=== PATIENT | male | born 1975 | race Caucasian/White ===

== ENCOUNTER 2021-08-09 13:02 | Emergency (ER) | payer OTHER, SELFPAY ==
[2021-08-09 13:41] LABS: Urine Blood 3+ (Negative); Urine Glucose Negative (Negative); Urine Protein 2+ (Negative); Urine Specific Gravity 1.025 (1.005-1.030); Urine pH 5.5 (5.0-7.0)
[2021-08-09] MEDS ORDERED: ONDANSETRON 4 MG/2 ML VIAL ONE (13:47)
[2021-08-09] MEDS ORDERED: MORPHINE 4 MG/ML SYR ONE (13:47)
[2021-08-09 13:55] LABS: Absolute Lymphocytes (CBC) 1.9 K/uL (0.7-4.9); Basophils % 0.7 % (0-1.3); Hematocrit 41.4 % (39.6-49.0); Lymphocytes % 22.2 % (15.3-44.8); MPV 7.6 fL (7.6-11.3); RBC Red Blood Cell Count 4.47 M/uL (4.33-5.43)
[2021-08-09 14:11] LABS: Urine RBC >50 /HPF (NONE SEEN)
[2021-08-09 14:12] LABS: Urine Bacteria <20 /HPF (NONE SEEN)
--- NOTE | 2021-08-09 14:14 | RAD REPORT ---
EXAM DESCRIPTION: CT - Stone Protocol - 08/09/2021 2:04 pm CLINICAL HISTORY: FLANK PAIN COMPARISON: No comparisons TECHNIQUE: Axial 3 mm thick images were obtained without oral or IV contrast. The tgeua-gw-xadh span s the entirety of the system including uppermost abdomen and lung bases. All CT scans are performed using dose optimization technique as appropriate and may include automated exposure control or mA/KV adjustment according to patient size. FINDINGS: Mild left-sided hydronephrosis is present down to the UVJ where there is a [address] one at the bladder wall. Patient has additional 2-5 mm nonobstructing calyx calculi on the left. Punc gutierrez calyx mineralization noted on the right without hydronephrosis. No suspicious renal masses. Isod ense masses and pyelonephritis are not excluded on a stone protocol CT scan. No significant adrenal f inding. Urinary bladder is fully contracted. Imaged portions of the liver, spleen and pancreas show no suspicious findings on non-contrast imaging . No gallbladder or biliary tree abnormality identified. No suspicious bowel findings. No mass or bulky lymphadenopathy. A small 15 millimeter fat only umbilical hernia present. Fat extend s into the origin of each inguinal canal. No free air, free fluid or inflammatory stranding. No significant bony abnormality. IMPRESSION: Mild left-sided hydronephrosis secondary to an obstructing 3 mm calcification at the lef t UVJ. Isodense masses and pyelonephritis are not excluded on stone protocol technique.
[2021-08-09] MEDS ORDERED: TAMSULOSIN 0.4 MG SR CAP ONE (14:30)
[2021-08-09] MEDS ORDERED: MAGNESIUM SULFATE 1 gm IVPB 1 GM/100 ML BAG IV ONE (14:30)
[2021-08-09] MEDS ORDERED: KETOROLAC 30 MG/ML INJ ONE (15:08)
--- NOTE | 2021-08-09 15:19 | ER ---
Nurse's Notes [facility] Name: Riki Chavez Age: 46 yrs Sex: Male : 1975 Arrival Date: 08/09/2021 Time: 13:04 Bed 5 Private MD: Diagnosis: Calculus of kidney with calculus of ureter Presentation: 08/09 13:29 Chief complaint: Patient states: L flank pain that began this morning. HX of kidney ss stones. Pt believes this may be another one. Coronavirus screen: Client denies travel out of the [place] in the last 14 days. Ebola Screen: Patient denies exposure to infectious person. Patient denies travel to an Ebola-affected area in the 21 days before illness onset. Initial Sepsis Screen: Does the patient meet any 2 criteria? No. Patient's initial sepsis screen is negative. Does the patient have a suspected source of infection? No. Patient's initial sepsis screen is negative. Risk Assessment: Do you want to hurt yourself or someone else? Patient reports no desire to harm self or others. Onset of symptoms was August 09, 2021. 13:29 Method Of Arrival: Ambulatory ss 13:29 Acuity: KHLOE 3 ss Historical: - Allergies: 13:30 No Known Allergies; ss - Home Meds: 13:30 None [Active]; ss - PMHx: 13:30 kidney stones; ss - PSHx: 13:30 None; ss - Immunization history:: Client reports having NOT received the Covid vaccine. - Social history:: Smoking status: Patient denies any tobacco usage or history of. Screenin:07 Abuse screen: Denies threats or abuse. Denies injuries from another. Nutritional iw screening: No deficits noted. Tuberculosis screening: No symptoms or risk factors identified. Fall Risk IV access (20 points). Assessment: 14:06 General: Appears uncomfortable, Behavior is cooperative. Pain: Complains of pain in iw left flank. Neuro: Level of Consciousness is awake, alert, obeys commands, Oriented to person, place, time, situation, Moves all extremities. Full function GI: Bowel sounds present X 4 quads. Abd is soft X 4 quads Reports. Derm: Skin is intact, is fragile. Musculoskeletal: Range of motion: intact in all extremities. Vital Signs: 13:29 Pulse 65; Resp 16; Temp 98.4(TE); Pulse Ox 98% on R/A; Weight 83.91 kg; Height 6 ft. 1 ss in. (185.42 cm); Pain 10/10; 13:30 BP 122 / 89; ss 14:00 BP 124 / 71; Pulse 55; Resp 15; Pulse Ox 100% ; jl7 15:00 BP 115 / 82; Pulse 58; Resp 15; Pulse Ox 100% ; jl7 13:29 Body Mass Index 24.41 (83.91 kg, 185.42 cm) ED Course: 13:04 Patient arrived in ED. as 13:30 Triage completed. ss 13:30 Arm band placed on. ss 13:30 Inserted saline lock: 22 gauge in left antecubital area, using aseptic technique. iw 13:31 Jerica Cottrell FNP-C is PHCP. kb 13:31 Rian Renteria MD is Attending Physician. kb 13:32 Macrina Haynes, ZEV is Primary Nurse. iw 14:00 Patient has correct armband on for positive identification. jl7 14:04 CT Stone Protocol In Process Unspecified. EDMS 15:28 No provider procedures requiring assistance completed. IV discontinued, intact, jl7 bleeding controlled, No redness/swelling at site. Pressure dressing applied. Administered Medications: 13:52 Drug: morphine 4 mg Route: IVP; Site: left antecubital; jl7 14:15 Follow up: Response: No adverse reaction; Pain is decreased jl7 13:52 Drug: Zofran (Ondansetron) 4 mg Route: IVP; Site: left antecubital; jl7 14:39 Follow up: Response: No adverse reaction jl7 14:38 Drug: Magnesium Sulfate 1 grams Route: IVPB; Infused Over: 30 mins; Site: left jl7 antecubital; 15:03 Follow up: Response: No adverse reaction; IV Status: Completed infusion jl7 14:38 Drug: Flomax (tamsulosin) 0.4 mg Route: PO; jl7 15:29 Follow up: Response: No adverse reaction jl7 15:24 Drug: Ketorolac 30 mg Route: IVP; Site: left antecubital; iw 15:30 Follow up: Response: Medication administered at discharge. jl7 Outcome: 15:18 Discharge ordered by . kb 15:28 Discharged to home ambulatory, with family. jl7 15:28 Condition: stable 15:28 Discharge instructions given to patient, family, Instructed on discharge instructions, follow up and referral plans. medication usage, Demonstrated understanding of instructions, follow-up care, medications, Prescriptions given X 3. 15:29 Patient left the ED. jl7 Signatures: Dispatcher [employer] EDMS Jerica Cottrell, PULP AND PAPER TESTER-C PULP AND PAPER TESTER-Mary Calderon Irene, RN RN iw Smirch, Shelby, RN RN ss Leal, Jahala, RN RN jl7
--- NOTE | 2021-08-09 15:19 | EDPHYS ---
Physician Documentation [facility] Name: Riki Chavez Age: 46 yrs Sex: Male : 1975 Arrival Date: 08/09/2021 Time: 13:04 Bed 5 Private MD: ED Physician Rian Renteria HPI: 08/09 13:54 This 46 yrs old Male presents to ER via Ambulatory with complaints of Possible Kidney kb Stone. 13:54 The patient complains of pain in the left flank. The pain radiates to the right kb inguinal area. Onset: The symptoms/episode began/occurred this morning. Modifying factors: The symptoms are alleviated by nothing. the symptoms are aggravated by nothing. Associated signs and symptoms: The patient has no apparent associated signs or symptoms. Severity of pain: At its worst the pain was moderate in the emergency department the pain is unchanged. The patient has not experienced similar symptoms in the past. The patient has not recently seen a physician. Pt reports left flank pain, difficulty urinating and small amounts that started this morning. . Historical: - Allergies: 13:30 No Known Allergies; ss - Home Meds: 13:30 None [Active]; ss - PMHx: 13:30 kidney stones; ss - PSHx: 13:30 None; ss - Immunization history:: Client reports having NOT received the Covid vaccine. - Social history:: Smoking status: Patient denies any tobacco usage or history of. ROS: 13:53 Constitutional: Negative for fever, chills, and weight loss. kb 13:53 Back: Positive for flank pain, on the left. 13:53 : Positive for flank pain, difficulty urinating. 13:53 All other systems are negative. Exam: 13:53 Constitutional: This is a well developed, well nourished patient who is awake, alert, kb and in no acute distress. Head/Face: Normocephalic, atraumatic. ENT: Moist Mucous membranes Respiratory: Respirations even and unlabored. No increased work of breathing, no retractions or nasal flaring. Abdomen/GI: Soft, non-tender. No distention Skin: Warm, dry with normal turgor. Normal color. MS/ Extremity: Pulses equal, no cyanosis. Neurovascular intact. Full, normal range of motion. Neuro: Awake and alert, GCS 15, oriented to person, place, time, and situation. Moves all extremities. Normal gait. Psych: Awake, alert, with orientation to person, place and time. Behavior, mood, and affect are within normal limits. 13:53 Back: CVA tenderness, that is moderate, is noted on the left. Vital Signs: 13:29 Pulse 65; Resp 16; Temp 98.4(TE); Pulse Ox 98% on R/A; Weight 83.91 kg; Height 6 ft. 1 ss in. (185.42 cm); Pain 10/10; 13:30 BP 122 / 89; ss 14:00 BP 124 / 71; Pulse 55; Resp 15; Pulse Ox 100% ; jl7 15:00 BP 115 / 82; Pulse 58; Resp 15; Pulse Ox 100% ; jl7 13:29 Body Mass Index 24.41 (83.91 kg, 185.42 cm) ss MDM: 13:31 Patient medically screened. kb 13:52 Data reviewed: vital signs, nurses notes. Data interpreted: Pulse oximetry: on room air kb is 98 %. Interpretation: normal. 15:18 Counseling: I had a detailed discussion with the patient and/or guardian regarding: the kb historical points, exam findings, and any diagnostic results supporting the discharge/admit diagnosis, lab results, radiology results, the need for outpatient follow up, a family practitioner, a urologist, to return to the emergency department if symptoms worsen or persist or if there are any questions or concerns that arise at home. 08/09 13:33 Order name: Basic Metabolic Panel; Complete Time: 14:23 kb 08/09 13:33 Order name: CBC with Diff; Complete Time: 14:23 kb 08/09 13:33 Order name: CT Stone Protocol; Complete Time: 14:23 kb 08/09 13:33 Order name: Urine Microscopic Only; Complete Time: 14:23 kb 08/09 13:41 Order name: Urine Dipstick-Ancillary; Complete Time: 13:45 EDMS 08/09 13:33 Order name: IV Saline Lock; Complete Time: 13:52 kb 08/09 13:33 Order name: Labs collected and sent; Complete Time: 13:53 kb 08/09 13:33 Order name: Urine Dipstick-Ancillary (obtain specimen); Complete Time: 13:53 kb Administered Medications: 13:52 Drug: morphine 4 mg Route: IVP; Site: left antecubital; jl7 14:15 Follow up: Response: No adverse reaction; Pain is decreased jl7 13:52 Drug: Zofran (Ondansetron) 4 mg Route: IVP; Site: left antecubital; jl7 14:39 Follow up: Response: No adverse reaction jl7 14:38 Drug: Magnesium Sulfate 1 grams Route: IVPB; Infused Over: 30 mins; Site: left jl7 antecubital; 15:03 Follow up: Response: No adverse reaction; IV Status: Completed infusion jl7 14:38 Drug: Flomax (tamsulosin) 0.4 mg Route: PO; jl7 15:29 Follow up: Response: No adverse reaction jl7 15:24 Drug: Ketorolac 30 mg Route: IVP; Site: left antecubital; iw 15:30 Follow up: Response: Medication administered at discharge. jl7 Disposition: 15:40 Co-signature as Attending Physician, Rian Renteria MD I agree with the assessment and rn plan of care. Attestation: The patient's history, exam findings, diagnostics, and a summary of any interventions or procedures was reviewed in detail with Jerica SANDOVAL. Disposition Summary: 08/09/21 15:18 Discharge Ordered Location: Home kb Condition: Stable kb Diagnosis - Calculus of kidney with calculus of ureter kb Followup: kb - With: Emergency Department - When: As needed - Reason: Worsening of condition Followup: kb - With: Private Physician - When: 2 - 3 days - Reason: Recheck today's complaints, Continuance of care, Re-evaluation by your physician Discharge Instructions: - Discharge Summary Sheet kb - Kidney Stones, [id number] kb Forms: - Medication Reconciliation Form kb - Thank You Letter kb - Antibiotic Education kb - Prescription Opioid Use kb - Work release form eb Prescriptions: - Flomax 0.4 mg Oral capsule - take 1 capsule by ORAL route once daily for 10 days; 10 capsule; Refills: 0, kb Product Selection Permitted - Zofran 4 mg Oral Tablet - take 1 tablet by ORAL route every 6 hours As needed; 20 tablet; Refills: 0, kb Product Selection Permitted - Diclofenac Sodium 75 mg Oral tablet,delayed release (DR/EC) - take 1 tablet by ORAL route 2 times per day As needed; 30 tablet; Refills: 0, kb Product Selection Permitted Signatures: Dispatcher [employer] Jerica Ohara, SCRAP BUNCH MAKER-C SCRAP BUNCH MAKER-Ckb Macrina Haynes, RN RN Rian Galo MD MD rn Smirch, Shelby, RN RN Primitivo Holm RN RN jl7
[2021-08-09 15:35] VITALS: TEMP 98.4; O2SAT 98
[2021-08-09 15:36] VITALS: BP 122/89
== END 2021-08-09 15:29 | disposition home or self-care (01) ==
LOC: ER 13:02
DX: N20.2 Calculus of kidney with calculus of ureter (principal)
CPT/HCPCS: 36415; 74176; 76377; 80048; 81003; 81015; 85025; 96365; 96375; 99284; J2405; J3475

== ENCOUNTER 2023-03-17 11:02 | Emergency (ER) | payer SELFPAY ==
--- OUTSIDE RECORDS SUMMARY | 2023-03-17 11:05 | XMS REPORT | Continuity of Care Document ---
:1975 Author Organization [facility] t Address [address] [place] [address] Care Team Providers Name Role Phone Pcp, Patient Does Not Have A Primary Care Physician +[id number] ESTEFANIA COOPER Attending Clinician Unavailable Estefania Keyes Attending Clinician Problems Condition Condition Condition Status Onset Resolution Last Treating Co mments Source Name Details Category Date Date Treatment Clinician Date Headache, Headache, Disease Active 2015-09 Uni vers unspecifie unspecifie 10 it y [place] d [place] d [place] type type Medical Branch Calculus Calculus Disease Active Unive rs of both of both 12-24 ity of kidneys kidneys 00:00: [place] [address] [facility] [place] Allergies, Adverse Reactions, Alerts Allergy Allergy Status Severity Reaction(s) Onset Inactive Treating Comm ents Source Name Type Date Date Clinician Codeine Propensi Active Nausea Univers ty to and/or 12-24 ity of adverse Vomiting 00:00: [place] reaction 00 Medical s Branch CODEINE DRUG Active N/V Univers INGREDI 12-24 ity of 00:00: [place] [address] [facility] [place] Social History Social Habit Start Date Stop Date Quantity Comments Source Exposure to 2022-04-15 2022-04-[address] [facility] SARS-CoV-2 00:00:00 11:14:00 [facility] (event) Branch Alcohol intake 2022-04-25 2022-04-25 0 /d [facility] 00:00:00 00:00:00 [facility] Tobacco use and 2016-01-30 2016-01-30 Smokeless tobacco Un iversity of exposure 00:00:00 00:00:00 non-user [facility] Sex Assigned At [birth year] Universit y of 00:00:00 00:00:00 [facility] Smoking Status Start Date Stop Date Source Never smoked tobacco [facility] Medications Ordered Filled Start Stop Current Ordering Indication Dosage Frequency Signature Comments Components Source Medication Medication Date Date Medication? Clinician (SIG) Name Name predniSONE No [id number] 40mg Take 2 Univers 20 mg 04-26 tablets by ity of tablet 00:00: 04:59 mouth in [place] 00 :00 the Medical morning Branch for 5 days. methocarbam No 1000mg 1,000 mg, Univers oL 04-25 Oral, ity of (ROBAXIN) 16:45: 16:43 ONCE, [place] tablet [place] dose, On Medical 1,000 mg [place] Branch 04/25/22 at 1145, KEISHA dexamethaso No 10mg 10 mg, Uni vers ne sod phos 04-25 Intramuscu i ty of PF 16:45: 16:42 lar, ONCE, [place] injection 00 :00 1 dose, On Medi star 10 mg [facility] 04/25/22 at 1145, 1 mL ketorolac No 60mg 60 mg, Unive rs (TORADOL) 04-25 Intramuscu ity of injection 16:45: 16:45 lar, ONCE, [place] 60 mg 00 :00 1 dose, On Medical [place] Branch 04/25/22 at 1145, KEISHA ibuprofen Yes [id number] 800mg Take 1 Univers 800 mg 8-21 tablet by ity of tablet 00:00: mouth [place] 00 every 8 Medical (eight) Branch hours as needed for Pain (scale 4-6). methocarbam Yes [id number] 750mg Take 1 Univers oL 750 mg 8-21 tablet by ity o f tablet 00:00: mouth 4 [place] 00 (four) Medical times Branch daily as needed for Pain (scale 7-10). traMADOL 2017-09 Yes 50mg Take 1 Univers (ULTRAM) 50 0-30 tablet by ity of mg tablet 00:00: mouth [place] 00 every 6 Medical (six) Branch hours as needed for Pain (scale 7-10). ibuprofen 2015-09 Yes 800mg Take 1 Unive rs (MOTRIN) 0-25 tablet by ity of 800 mg 00:00: mouth [place] tablet 00 every 6 Medical (six) Branch hours as needed for Pain (scale 4-6). proMETHazin 2015-09 Yes 25mg Take 1 Univ ers e 0-25 tablet by ity of (PHENERGAN) 00:00: mouth [place] 25 mg 00 every 4 Medical tablet (four) Branch hours as needed for Nausea and Vomiting (N/V). Vital Signs Vital Name Observation Time Observation Value Comments Source Systolic blood 2022-04-25 16:23:00 136 mm[Hg] Univer sity [facility] Diastolic blood 2022-04-25 16:23:00 85 mm[Hg] [facility] Heart rate 2022-04-25 16:23:00 64 /min [facility] Respiratory rate 2022-04-25 16:23:00 20 /min [facility] Oxygen saturation in 2022-04-25 16:23:00 98 /min [facility] Arterial blood by [facility] Pulse oximetry [place] Body temperature 2022-04-25 16:15:00 36.5 Tish [facility] Body height 2022-04-25 16:15:00 185.4 cm [facility] Body weight 2022-04-25 16:15:00 86.183 kg [facility] BMI 2022-04-25 16:15:00 25.07 kg/m2 [facility] Procedures Procedure Date / Time Performed Performing Clinician Sourc e URINALYSIS 2022-04-25 16:24:00 Estefania Cooper [facility] CONSENT/REFUSAL FOR 2022-04-25 16:13:15 Doctor Unassigned, No Un [facility] DIAGNOSIS AND Name Medical Branch TREATMENT Encounters Start End Encounter Admission Attending Care Care Encounter Source Date/Time Date/Time Type Type Clinicians Facility Department ID 2022-04-25 2022-04-25 Emergency X SIMI COOPER [facility] [id number] [facility] 11:16:00 12:51:00 ESTEFANIA benoit of [facility] 2022-04-25 2022-04-25 Emergency [facility], [facility] [id number] [facility] 11:16:00 12:51:00 Estefania CEDENO [id number] i [facility] [id number] [facility] [id number] [facility] 084 Branch Results This patient has no known results.
[2023-03-17 11:54] LABS: Hematocrit 41.7 % (39.6-49.0); Lymphocytes % 34.3 % (15.3-44.8); MCV 92.5 fL (80-100); MPV 7.6 fL (7.6-11.3); RBC Red Blood Cell Count 4.51 M/uL (4.33-5.43)
[2023-03-17] MEDS ORDERED: ONDANSETRON 4 MG/2 ML VIAL ONE (11:54)
[2023-03-17] MEDS ORDERED: KETOROLAC 30 MG/ML INJ ONE (11:54)
[2023-03-17] MEDS ORDERED: NA CHLORIDE 0.9% 1,000 ML ONE (11:55)
[2023-03-17 12:01] LABS: Specific Gravity 1.011 (1.005-1.030); Urine Bacteria None Seen /HPF (<20); Urine Bilirubin NEGATIVE (Negative); Urine Blood 3+ (OVER) (Negative); Urine Color Light-Yellow (Yellow); Urine Glucose NEGATIVE (Negative); Urine Mucus Slight /HPF (None Seen); Urine Protein NEGATIVE (Negative); Urine RBC 21-50 /HPF (None Seen); Urine Urobilinogen Normal (Normal)
[2023-03-17 12:03] LABS: Urine Clarity Clear (Clear)
--- NOTE | 2023-03-17 12:03 | RAD REPORT ---
EXAM DESCRIPTION: CT - Abdomen Pelvis Wo Contrast - 03/17/2023 11:36 am CLINICAL HISTORY: FLANK PAIN COMPARISON: Stone Protocol dated 08/09/2021 TECHNIQUE: Thin cut axial CT imaging of the abdomen and pelvis was performed without IV contrast. Mu ltiplanar reformats were generated and reviewed. All CT scans are performed using dose optimization technique as appropriate and may include automated exposure control or mA/KV adjustment according to patient size. FINDINGS: No suspicious findings in the lung bases. The liver, spleen, and pancreas show no suspicious findings. Gallbladder and biliary tree are also wi thout suspicious finding. Symmetric renal contour, without suspicious parenchymal findings within limits of noncontrast techniq ue. Mild left hydroureteronephrosis. 5 millimeter calculus along the base of the bladder, may be at t he vesicoureteral junction or recently passed. Other punctate 2-3 millimeter calculi along the renal pelvis and calyces bilaterally. No dilated bowel loops or bowel wall thickening. No free air, free fluid or inflammatory stranding. N o hernia, mass or bulky lymphadenopathy. The urinary bladder is otherwise without significant finding . No suspicious bony findings. IMPRESSION: Mild left hydroureteronephrosis. A 5 millimeter calculus present at the base of the urinary bladder, may be present at the exact urete ral junction or recently passed into the bladder lumen.
[2023-03-17 12:13] LABS: Albumin 4.1 g/dL (3.4-5.0); Bilirubin Total 0.7 mg/dL (0.2-1.0); Potassium 3.8 mEq/L (3.5-5.1); Protein, Total 7.8 g/dL (6.4-8.2); Troponin High Sensitivity 26.4 pg/mL (<58.9)
--- NOTE | 2023-03-17 12:21 | ER ---
Nurse's Notes [facility] Name: Riki Chavez Age: 47 yrs Sex: Male : 1975 Arrival Date: 03/17/2023 Time: 11:02 Bed 16 Private MD: Diagnosis: Ureterolithiasis;Elevated creatinine Presentation: 03/17 11:21 Chief complaint: Patient states: L flank pain with dark urine since last night. No kl fever. Coronavirus screen: Vaccine status: Patient reports being unvaccinated. Client denies travel out of the [place] in the last 14 days. At this time, the client does not indicate any symptoms associated with coronavirus-19. Ebola Screen: Patient denies travel to an Ebola-affected area in the 21 days before illness onset. Initial Sepsis Screen: Does the patient meet any 2 criteria? No. Patient's initial sepsis screen is negative. Does the patient have a suspected source of infection? Yes: Dysuria/Frequency/Urgency/UTI. Risk Assessment: Do you want to hurt yourself or someone else? Patient reports no desire to harm self or others. Onset of symptoms was March 16, 2023. 11:21 Method Of Arrival: Ambulatory kl 11:21 Acuity: KHLOE 3 kl Triage Assessment: 11:22 General: Appears uncomfortable, Behavior is calm, cooperative, appropriate for age. ll1 Pain: Complains of pain in L flank Quality of pain is described as aching. : Reports pain in left flank(s), dark colored urine. Historical: - Allergies: 11:19 No Known Allergies; kl - PMHx: 11:19 Kidney stones; kl - PSHx: 11:19 None; kl - Immunization history:: Client reports having NOT received the Covid vaccine. - Social history:: Smoking status: Patient denies any tobacco usage or history of. Screenin:45 [facility] ED Fall Risk Assessment (Adult) History of falling in the last 3 months, nj1 including since admission No falls in past 3 months (0 pts) Confusion or Disorientation No (0 pts) Intoxicated or Sedated No (0 pts) Impaired Gait No (0 pts) Mobility Assist Device Used No (0 pt) Altered Elimination No (0 pt) Score/Fall Risk Level 0 - 2 = Low Risk Oriented to surroundings, Maintained a safe environment, Hourly rounding (assess needs \T\ fall precautionary measures) done. Abuse screen: Denies threats or abuse. Denies injuries from another. 11:45 Nutritional screening: No deficits noted. Tuberculosis screening: No symptoms or risk [facility] factors identified. Assessment: 11:37 Reassessment: Taken for CT. nj1 11:45 Reassessment: Patient appears in no apparent distress at this time. Patient and/or nj1 family updated on plan of care and expected duration. Pain level reassessed. Patient is alert, oriented x 3, equal unlabored respirations, skin warm/dry/pink. 11:45 Pain: Complains of pain in Left flank Pain currently is 8 out of 10 on a pain scale. nj1 12:35 Reassessment: Patient appears in no apparent distress at this time. Patient and/or nj1 family updated on plan of care and expected duration. Pain level reassessed. Patient is alert, oriented x 3, equal unlabored respirations, skin warm/dry/pink. Patient states feeling better. Patient states symptoms have improved. 13:00 Reassessment: Patient appears in no apparent distress at this time. Patient and/or nj1 family updated on plan of care and expected duration. Pain level reassessed. Patient is alert, oriented x 3, equal unlabored respirations, skin warm/dry/pink. Patient states feeling better. Patient states symptoms have improved. Vital Signs: 11:21 BP 133 / 79; Pulse 57; Resp 17; Temp 98.5; Pulse Ox 99% ; Weight 83.91 kg; Height 6 ft. kl 1 in. ; Pain 8/10; 12:34 BP 114 / 64; Pulse 54; Resp 18; Pulse Ox 98% ; Pain 3/10; nj1 13:00 BP 114 / 64; Pulse 52; Resp 16; Pulse Ox 98% ; Pain 2/10; nj1 11:21 Body Mass Index 24.41 (83.91 kg, 185.42 cm) kl 11:21 Pain Scale: Adult kl 12:34 Pain Scale: Adult nj1 13:00 Pain Scale: Adult nj1 ED Course: 11:03 Patient arrived in ED. am2 11:05 Jackson Faye MD is Attending Physician. rt 11:05 Attending Physician role handed off by Jackson Faye MD sd2 11:05 Carito Naidu MD is Attending Physician. sd2 11:22 Triage completed. kl 11:22 Arm band placed on Patient placed in an exam room, on a stretcher. kl 11:25 Shelby Gomez, RN is Primary Nurse. nj1 11:36 CT Abd/Pelvis - Without Contrast In Process Unspecified. EDMS 11:45 Patient has correct armband on for positive identification. Bed in low position. Call nj1 light in reach. Adult w/ patient. Provided Education on: Fall precautions. 11:45 Inserted saline lock: 20 gauge in left antecubital area, using aseptic technique. Blood nj1 collected. Inserted by JHONY, electromyographic technician. 11:55 Urine collected: clean catch specimen, clear. 8 12:20 Ean Magaña MD is Referral Physician. sd2 13:00 IV discontinued, intact, bleeding controlled. nj1 13:03 No provider procedures requiring assistance completed. nj1 Administered Medications: 11:48 Drug: NS 0.9% IV 1000 ml Route: IV; Rate: 1 bolus; Site: left antecubital; nj1 13:00 Follow up: Response: No adverse reaction; IV Status: Completed infusion; IV Intake: nj1 1000ml 11:48 Drug: Ondansetron IVP 4 mg Route: IVP; Site: left antecubital; nj1 12:36 Follow up: Response: No adverse reaction nj1 11:50 Drug: Ketorolac IVP 15 mg Route: IVP; Site: left antecubital; nj1 12:36 Follow up: Response: No adverse reaction; Pain is decreased nj1 Medication: 13:03 VIS not applicable for this client. nj1 Intake: 13:00 IV: 1000ml; Total: 1000ml. nj1 Outcome: 12:21 Discharge ordered by . sd2 13:00 Discharged to home ambulatory, with family, Given urine strainer nj1 13:00 Condition: improved 13:00 Discharge instructions given to patient, Instructed on discharge instructions, follow up and referral plans. medication usage, urine strainer, Demonstrated understanding of instructions, follow-up care, medications. 13:04 Patient left the ED. nj1 Signatures: Dispatcher [employer] EDTX Leydi Qureshi RN RN kl Moreno, Amanda am2 Kaylyn Qureshi RN RN ll1 Dunlop, Stephanie, MD MD sd2 [place], Ryan, MD MD rt Shelby Gomez, RN RN nj1 Bree Sebastian sm8 Corrections: (The following items were deleted from the chart) 12:36 12:34 Pulse 54bpm; Resp 18bpm; Pulse Ox 98%; Pain 11/12, Adult; nj1 nj1
--- NOTE | 2023-03-17 12:21 | EDPHYS ---
Physician Documentation [facility] Name: Riki Chavez Age: 47 yrs Sex: Male : 1975 Arrival Date: 03/17/2023 Time: 11:02 Bed 16 Private MD: ED Physician Carito Naidu HPI: 03/17 11:31 This 47 yrs old Male presents to ER via Ambulatory with complaints of Flank Pain. sd2 11:31 47 yo M presents with CC of L flank pain that started overnight. Reports noticing sd2 tea-colored urine last night and then the pain began. Denies any fevers, vomiting or diarrhea. Reports nausea occasionally. Has not taken any medications at home for the pain. Does not currently follow up with a urologist but has a history of multiple kidney stones in the past. He has had laser lithotripsy once for his first kidney stone 20+ years ago. . Historical: - Allergies: 11:19 No Known Allergies; kl - PMHx: 11:19 Kidney stones; kl - PSHx: 11:19 None; kl - Immunization history:: Client reports having NOT received the Covid vaccine. - Social history:: Smoking status: Patient denies any tobacco usage or history of. ROS: 11:31 Constitutional: Negative for fever, chills, and weight loss, Eyes: Negative for injury, sd2 pain, redness, and discharge, Cardiovascular: Negative for chest pain, palpitations, and edema, Respiratory: Negative for shortness of breath, cough, wheezing. Abdomen/GI: Negative for abdominal pain, vomiting, diarrhea. Positive for nausea and flank pain. Back: Negative for injury and pain, : Negative for dysuria, frequency. Positive for urine color change. MS/Extremity: Negative for injury and deformity, Skin: Negative for injury, rash, and discoloration, Neuro: Negative for headache, numbness and tingling. Exam: 11:31 Constitutional: This is a well developed, well nourished patient who is awake, alert, sd2 and in no acute distress. Head/Face: Normocephalic, atraumatic. Eyes: EOMI, normal conjunctiva bilaterally Chest/axilla: Normal chest wall appearance and motion. Nontender with no deformity. Cardiovascular: Regular rate and rhythm with a normal S1 and S2. No gallops, murmurs, or rubs. 2+ distal pulses. Respiratory: Lungs have equal breath sounds bilaterally, clear to auscultation and percussion. No rales, rhonchi or wheezes noted. No increased work of breathing, no retractions or nasal flaring. Abdomen/GI: Soft, non-tender, with normal bowel sounds. No guarding or rebound. No evidence of tenderness throughout. Back: No spinal tenderness. Left costovertebral tenderness present. Full range of motion. Skin: Warm, dry with normal turgor. Normal color with no rashes, no lesions, and no evidence of cellulitis. MS/ Extremity: Pulses equal, no cyanosis. Neurovascular intact. Full, normal range of motion. Ambulatory without difficulty. Psych: Awake, alert, with orientation to person, place and time. Behavior, mood, and affect are within normal limits. Vital Signs: 11:21 BP 133 / 79; Pulse 57; Resp 17; Temp 98.5; Pulse Ox 99% ; Weight 83.91 kg; Height 6 ft. kl 1 in. ; Pain 8/10; 12:34 BP 114 / 64; Pulse 54; Resp 18; Pulse Ox 98% ; Pain 3/10; nj1 13:00 BP 114 / 64; Pulse 52; Resp 16; Pulse Ox 98% ; Pain 2/10; nj1 11:21 Body Mass Index 24.41 (83.91 kg, 185.42 cm) kl 11:21 Pain Scale: Adult kl 12:34 Pain Scale: Adult nj1 13:00 Pain Scale: Adult nj1 MDM: 11:25 Patient medically screened. sd2 11:31 Differential diagnosis: Gastritis, cholecystitis, pancreatitis, SBO, diverticulitis, sd2 kidney stone, appendicitis, UTI, dehydration, electrolyte abnormality among others. Data reviewed: vital signs, nurses notes, lab test result(s), radiologic studies. I considered the following discharge prescriptions or medication management in the emergency department Medications were administered in the Emergency Department. See MAR. Historians other than the Patient: Spouse/Significant Other: at reports allergy history. 12:19 Counseling: I had a detailed discussion with the patient and/or guardian regarding: the sd2 historical points, exam findings, and any diagnostic results supporting the discharge/admit diagnosis, lab results, radiology results, the need for outpatient follow up, to return to the emergency department if symptoms worsen or persist or if there are any questions or concerns that arise at home. ED course: Labs and imaging reviewed. Possibly about to pass or recently passed 5 mm stone seen on CT. No signs of UTI. Creatinine is mildly elevated but improved compared to last levels in system. Pt advised of need to follow up with Urology and PCP regarding this since it has been ongoing. He was advised of continued supportive care and verbalizes understanding of discharge plan and strict return precautions. . 03/17 11:26 Order name: CBC with Diff; Complete Time: 12:03 03/17 11:26 Order name: CMP; Complete Time: 12:14 03/17 11:26 Order name: Lipase; Complete Time: 12:14 03/17 11:26 Order name: Troponin High Sensitivity; Complete Time: 12:14 03/17 11:26 Order name: Urinalysis w/ reflexes; Complete Time: 12:03 03/17 11:26 Order name: CT Abd/Pelvis - Without Contrast; Complete Time: 12:03 sd2 Administered Medications: 11:48 Drug: NS 0.9% IV 1000 ml Route: IV; Rate: 1 bolus; Site: left antecubital; nj1 13:00 Follow up: Response: No adverse reaction; IV Status: Completed infusion; IV Intake: nj1 1000ml 11:48 Drug: Ondansetron IVP 4 mg Route: IVP; Site: left antecubital; nj1 12:36 Follow up: Response: No adverse reaction nj1 11:50 Drug: Ketorolac IVP 15 mg Route: IVP; Site: left antecubital; nj1 12:36 Follow up: Response: No adverse reaction; Pain is decreased nj1 Disposition Summary: 03/17/23 12:21 Discharge Ordered Location: Home sd2 Problem: an acute exacerbation sd2 Symptoms: have improved sd2 Condition: Stable sd2 Diagnosis - Ureterolithiasis sd2 - Elevated creatinine sd2 Followup: sd2 - With: Private Physician - When: 2 - 3 days - Reason: Recheck today's complaints, Continuance of care, Re-evaluation by your physician Followup: sd2 - With: Ean Magaña MD - When: 1 week - Reason: Recheck today's complaints, Continuance of care Discharge Instructions: - Discharge Summary Sheet sd2 - Kidney Stones sd2 - Dietary Guidelines to Help Prevent Kidney Stones sd2 Forms: - Medication Reconciliation Form sd2 - Thank You Letter sd2 - Antibiotic Education sd2 - Prescription Opioid Use sd2 - Patient Portal Instructions sd2 Prescriptions: - Flomax 0.4 mg Oral capsule - take 1 capsule by ORAL route daily; 5 capsule; Refills: 0, Product Selection sd2 Permitted Signatures: Dispatcher [employer] Leydi Pereira RN RN kl Dunlop, Stephanie, MD MD sd2 Shelby Gomez RN RN nj1 Corrections: (The following items were deleted from the chart) 11:34 11:26 EKG - Nurse/Tech ordered. sd2 sd2
[2023-03-17 13:08] VITALS: TEMP 98.5
[2023-03-17 13:10] VITALS: BP 114/64; O2SAT 98
== END 2023-03-17 13:04 | disposition home or self-care (01) ==
LOC: ER 11:02
DX: N20.1 Calculus of ureter (principal); R79.89 Other specified abnormal findings of blood chemistry
CPT/HCPCS: 36415; 74176; 80053; 81001; 83690; 84484; 85025; 96361; 96374; 96375; 99284; J2405; J7030